=== PATIENT | male | born 1955 | race African-American/Black ===

== ENCOUNTER 2019-03-18 14:51 | Inpatient (IN) | payer OTHER ==
[2019-03-18 16:09] VITALS: BMI 24.7
--- NOTE | 2019-03-18 19:36 | HP ---
CIWA Score Nausea/Vomitin Muscle Tremors: 2 Anxiety: 1-Mildly Anxious Agitation: 1-Slight > Activity Paroxysmal Sweats: 1-Minimal Palms Moist Orientation: 0-Oriented Tacttile Disturbances: 2-Mild Itch/Numbness/Burn Auditory Disturbances: 1-Very Mild Visual Disturbances: 1-Very Mild Sensitivity Headache: 2-Mild CIWA-Ar Total Score: 13 - Admission Criteria OASAS Guidelines: Admission for Medically Managed Detox: Requires at least one of the followin. CIWA greater than 12 2. Seizures within the past 24 hours 3. Delirium tremens within the past 24 hours 4. Hallucinations within the past 24 hours 5. Acute intervention needed for co occurring medical disorder 6. Acute intervention needed for co occurring psychiatric disorder 7. Severe withdrawal that cannot be handled at a lower level of care (continued vomiting, continued diarrhea, abnormal vital signs) requiring intravenous medication and/or fluids 8. Patient presents the following: CIWA greater than 12 Admission Criteria Met: Admission criteria met Admission [facility] Chief Complaint: Alcohol withdrawal Allergies/Adverse Reactions: Allergies Allergy/AdvReac Type Severity Reaction Status Date / Time Fish Containing Products Allergy Intermediate Rash Verified 03/18/19 16:04 History of Present Illness: Patient is a 63 year old man with alcohol dependence who presents to [facility] for the first time for detox. He reports previous treatments with no significant sobriety. He denies seizures or blackouts related to alcohol. Exam Limitations: No Limitations - Ebola screening Have you traveled outside of the country in the last 21 days: No Have you had contact with anyone from an Ebola affected area: No Have you been sick,other than usual withdrawal symptoms: No Do you have a fever: No - Review of Systems Constitutional: No Symptoms Reported EENT: reports: Nose Congestion Respiratory: reports: Cough Cardiac: reports: No Symptoms Reported GI: reports: Nausea, Poor Fluid Intake : reports: No Symptoms Reported Musculoskeletal: reports: Muscle Pain, Muscle Weakness Integumentary: reports: Dryness Neuro: reports: Headache, Numbness, Tremors Endocrine: reports: No Symptoms Reported Hematology: reports: No Symptoms Reported Psychiatric: reports: No Sypmtoms Reported, other (talks to self incoherently) Other Systems: Reviewed and Negative Patient History - Patient Medical History Hx Anemia: No Hx Asthma: No Hx Chronic Obstructive Pulmonary Disease (COPD): No Hx Cancer: No Hx Cardiac Disorders: No Hx Congestive Heart Failure: No Hx Hypertension: No Hx Hypercholesterolemia: No Hx Pacemaker: No HX Cerebrovascular Accident: No Hx Seizures: No Hx Dementia: No Hx Diabetes: No Hx Gastrointestinal Disorders: No Hx Liver Disease: No Hx Genitourinary Disorders: No Hx Sexually Transmitted Disorders: No Hx Renal Disease (ESRD): No Hx Thyroid Disease: No Hx Human Immunodeficiency Virus (HIV): No Hx Hepatitis C: No Hx Depression: No Hx Suicide Attempt: No Hx Bipolar Disorder: No Hx Schizophrenia: No - Patient Surgical History Past Surgical History: No - PPD History Previous Implant?: Yes Documented Results: Negative w/o proof Implanted On Prior [facility] Admission?: No PPD to be Administered?: Yes - Smoking Cessation Smoking history: Current every day smoker Have you smoked in the past 12 months: Yes Aproximately how many cigarettes per day: 80 Hx Chewing Tobacco Use: No Initiated information on smoking cessation: Yes 'Breaking Loose' booklet given: 03/18/19 - Substances abused Alcohol Substance route: Oral Frequency: Daily Amount used: 1.5pints of wine/day Age of first use: 18 Date of last use: 03/18/19 Cocaine Substance route: Inhalation Frequency: 3-6 times per week Amount used: $50 Age of first use: 20 Date of last use: 03/17/19 Admission Physical Exam [facility] - Vital Signs Vital Signs: Vital Signs - 24 hr 03/18/19 16:04 Temperature 96.8 F L Pulse Rate 90 Respiratory 18 Rate Blood Pressure 130/72 - Physical General Appearance: Yes: No Apparent Distress HEENTM: Yes: Hearing grossly Normal, Normocephalic, Normal Voice, Nasal Congestion, Other (poor dentition) Respiratory: Yes: Chest Non-Tender, Lungs Clear, Normal Breath Sounds, Decreased Breath Sounds, No Respiratory Distress Neck: Yes: No masses,lesions,Nodules, Supple Breast: Yes: Breast Exam Deferred Cardiology: Yes: Regular Rhythm, Regular Rate, S1, S2 Abdominal: Yes: Normal Bowel Sounds, Non Tender Genitourinary: Yes: Within Normal Limits Back: Yes: Normal Inspection Musculoskeletal: Yes: full range of Motion, Gait Steady, Pelvis Stable Extremities: Yes: Normal Capillary Refill, Tremors Neurological: Yes: paster hat lining II-XII NML intact, Alert, Normal Mood/Affect, Normal Response Integumentary: Yes: Dry, Rash (diffuse on trunk) Lymphatic: Yes: Within Normal Limits - Diagnostic (1) Alcohol dependence, uncomplicated Current Visit: Yes Status: Acute (2) Cocaine abuse Current Visit: Yes Status: Acute Cleared for Admission S - Detox or Rehab [facility] Level of Care: Medically Managed Claeared for Rehab Admission: No Breathalyzer - Breathalyzer Breathalyzer: 0 Urine Drug Screen - Test Device Lot number: [id number] Expiration date: 11/16/20 - Control Is test valid?: Yes - Results Drug screen NEGATIVE: No Urine drug screen results: [facility]-Cocaine Inpatient Rehab Admission - Rehab Decision to Admit Inpatient rehab admission?: No
[2019-03-18] MEDS ORDERED: hydrOXYzine PAMOATE 25 MG CAPSULE (FP) PO PRN (19:44)
[2019-03-18] MEDS ORDERED: MAGNESIUM HYDROX 2400MG/30ML ORAL SUSPENSION 30 ML CUP PO PRN (19:44)
[2019-03-18] MEDS ORDERED: LORazepam 1 MG TABLET PO PRN (19:44)
[2019-03-18] MEDS ORDERED: NICOTINE POLACRILEX 4 MG GUM BUC PRN (19:44)
[2019-03-18] MEDS ORDERED: IBUPROFEN 400 MG TABLET (FP) PO PRN (19:44)
[2019-03-18] MEDS ORDERED: BISMUTH SUBSALICYLATE 524 MG/30 ML UD PO PRN (19:44)
[2019-03-18] MEDS ORDERED: ACETAMINOPHEN 325 MG TABLET (FP) PO PRN ×2 (19:44)
[2019-03-18] MEDS ORDERED: MAG HYDROX/AL HYDROX/SIMETH 30 ML UNIT-DOSE CUP PO PRN (19:44)
[2019-03-18] MEDS ORDERED: MAGNESIUM CITRATE 300 ML BOTTLE PO PRN (19:44)
[2019-03-18] MEDS ORDERED: P-EPHED 60MG/TRIPROLIDI 2.5MG TABLET PO PRN (19:44)
[2019-03-18] MEDS ORDERED: MELATONIN 5 MG TABLETS PO PRN (19:44)
[2019-03-18] MEDS ORDERED: MENTHOL/PHENOL 1 EACH UD MM PRN (19:44)
[2019-03-18] MEDS ORDERED: METHOCARBAMOL 500 MG TABLET PO PRN (19:44)
[2019-03-18] MEDS: NICOTINE 21 MG/24 HOURS TOPICAL PATCH TD SCH (21:53)
[2019-03-18] MEDS: THIAMINE HCL 100 MG TABLET (FP) PO SCH (23:00)
[2019-03-18] MEDS: LORazepam 2 MG TABLET PO SCH (23:01)
[2019-03-19] MEDS: LORazepam 2 MG TABLET PO SCH ×4 (05:44→22:40)
[2019-03-19] MEDS ORDERED: PRENATAL VITAMINS W/ FOLIC ACID TABLET (FP) PO SCH (10:00)
[2019-03-19] MEDS: NICOTINE 21 MG/24 HOURS TOPICAL PATCH TD SCH (10:51)
--- NOTE | 2019-03-19 12:17 | PN ---
S CIWA - CIWA Score Nausea/Vomitin-No Nausea/No Vomiting Muscle Tremors: 3 Anxiety: 2 Agitation: 3 Paroxysmal Sweats: 2 Orientation: 0-Oriented Tacttile Disturbances: 0-None Auditory Disturbances: 0-None Visual Disturbances: 0-None Headache: 0-None Present CIWA-Ar Total Score: 10 S Progress Note (SOAP) Subjective: sweats mild shakes interrupted sleep Objective: 03/19/19 12:17 Vital Signs Temperature 98.5 F 03/19/19 09:44 Pulse Rate 84 03/19/19 09:44 Respiratory Rate 16 03/19/19 09:44 Blood Pressure 129/87 03/19/19 09:44 O2 Sat by Pulse Oximetry (%) labs pending aaox3 ambulating no acute distress Assessment: 03/19/19 12:17 withdrawals Plan: continue detox
[2019-03-19 12:34] LABS: HEMOGLOBIN 11.7 GM/dL (11.7-16.9); MCH 30.1 pg (25.7-33.7); MCHC 31.5 g/dl (32.0-35.9); MEAN CELL VOLUME 95.4 fl (80-96); MEAN PLT VOLUME 9.9 fl (7.5-11.1); PLATELET COUNT 240 K/MM3 (134-434); RBC 3.88 M/mm3 (4.00-5.60); RDW 16.5 % (11.9-15.9); WHITE BLOOD COUNT 5.3 K/mm3 (4.0-10.0)
[2019-03-19 12:47] LABS: ALBUMIN 2.8 g/dl (3.4-5.0); BILIRUBIN,TOTAL 0.3 mg/dL (0.2-1); CALCIUM 8.5 mg/dL (8.5-10.1); CREATININE 1.2 mg/dL (0.55-1.3); POTASSIUM 4.9 mmol/L (3.5-5.1); TOT PROT 6.7 g/dl (6.4-8.2)
[2019-03-19] MEDS: THIAMINE HCL 100 MG TABLET (FP) PO SCH (22:40)
[2019-03-20] MEDS ORDERED: LORazepam 1 MG TABLET PO SCH (05:00)
[2019-03-20 05:59] VITALS: PULSE 100
--- NOTE | 2019-03-20 08:56 | PN ---
S Progress Note Note: pt did not want to stay pt states he is going home. Pt was reminded that he did not complete his detox and should be here to prevent from relapse, seizures, DT , OD and loss, pt chose to sign out AMA.
--- NOTE | 2019-03-20 08:57 | DS ---
[facility] Detox Discharge Summary Admission Date: 03/18/19 - History Present History: Alcohol Dependence, Cocaine Dependence - Physical Exam Results Vital Signs: Vital Signs Temperature 98.4 F 03/20/19 05:59 Pulse Rate 100 H 03/20/19 05:59 Respiratory Rate 18 03/20/19 05:59 Blood Pressure 139/95 03/20/19 05:59 O2 Sat by Pulse Oximetry (%) Pertinent Admission Physical Exam Findings: pt arrived in withdrawals Vital Signs Temperature 98.4 F 03/20/19 05:59 Pulse Rate 100 H 03/20/19 05:59 Respiratory Rate 18 03/20/19 05:59 Blood Pressure 139/95 03/20/19 05:59 O2 Sat by Pulse Oximetry (%) Laboratory Tests 03/19/19 03/19/19 07:50 07:50 WBC 5.3 RBC 3.88 L Hgb 11.7 Hct 37.0 MCV 95.4 MCH 30.1 MCHC 31.5 L RDW 16.5 H Plt Count 240 MPV 9.9 Sodium 143 Potassium 4.9 Chloride 106 Carbon Dioxide 36 H Anion Gap 1 L BUN 23.0 H Creatinine 1.2 Est GFR (CKD-EPI)AfAm 74.14 Est GFR (CKD-EPI)NonAf 63.97 Random Glucose 94 Calcium 8.5 Total Bilirubin 0.3 AST 13 L ALT 15 Alkaline Phosphatase 62 Total Protein 6.7 Albumin 2.8 L today pt is aaox3 ambulating no acute distress pt chose to sign out AMA. - Treatment Hospital Course: Rehab Referral Accepted - Medication Discharge Medications: Ambulatory Orders NK [No Known Home Medication] 03/18/19 - Diagnosis (1) Alcohol dependence, uncomplicated Current Visit: Yes Status: Chronic (2) Cocaine abuse Current Visit: Yes Status: Chronic - AMA Did Patient Leave Against Medical Advice: Yes
[2019-03-20 09:57] VITALS: BP 144/76; TEMP 98.2
--- NOTE | 2019-03-20 12:00 | EKG ---
Test Reason : Blood Pressure : / mmHG Vent. Rate : 061 BPM Atrial Rate : 061 BPM P-R Int : 130 ms QRS Dur : 146 ms QT Int : 466 ms P-R-T Axes : 082 -35 004 degrees QTc Int : 469 ms NORMAL SINUS RHYTHM WITH SINUS ARRHYTHMIA LEFT AXIS DEVIATION RIGHT BUNDLE BRANCH BLOCK ABNORMAL ECG WHEN COMPARED WITH ECG OF 18-MAR-2019 22:25, RIGHT BUNDLE BRANCH BLOCK IS NOW PRESENT Confirmed by VALERIA JI, JUANJO ([id number]) on 03/20/2019 12:00:06 PM Referred By: Confirmed By:JUANJO SHAW MD
--- NOTE | 2019-03-20 12:01 | EKG ---
Test Reason : Blood Pressure : / mmHG Vent. Rate : 082 BPM Atrial Rate : 082 BPM P-R Int : 124 ms QRS Dur : 072 ms QT Int : 350 ms P-R-T Axes : 076 078 076 degrees QTc Int : 408 ms SINUS RHYTHM WITH MARKED SINUS ARRHYTHMIA OTHERWISE NORMAL ECG NO PREVIOUS ECGS AVAILABLE Confirmed by VALERIA JI, JUANJO ([id number]) on 03/20/2019 12:00:27 PM Referred By: DR VILLASEÑOR Confirmed By:JUANJO SHAW MD
[2019-03-21] MEDS ORDERED: LORazepam 0.5 MG TABLET PO PRN
[2019-03-21] MEDS ORDERED: LORazepam 0.5 MG TABLET PO SCH (05:00)
[2019-03-22] MEDS ORDERED: LORazepam 0.5 MG TABLET PO ONE (05:00)
== END 2019-03-20 10:31 | disposition left against medical advice (07) | DRG 894 ==
LOC: EDBD → YASAS 14:51 → Y6N 20:34
PROVIDERS: ADMIT Allergy & Immunology; ATTEND Allergy & Immunology
PROC: HZ2ZZZZ Detoxification Services for Substance Abuse Treatment (ICD-10-PCS; principal; 2019-03-18)
DX: F10.230 Alcohol dependence with withdrawal, uncomplicated (principal); F14.10 Cocaine abuse, uncomplicated; F17.210 Nicotine dependence, cigarettes, uncomplicated; Z91.013 Allergy to seafood
CPT/HCPCS: 36415; 80053; 85027; 86593; 93005; 93010